=== PATIENT | female | born 1965 | race Caucasian/White ===

== ENCOUNTER 2018-02-04 20:58 | Emergency (ER) | payer MEDICAID ==
[2018-02-04] MEDS ORDERED: NS 1,000 ML IV ONE (21:02)
[2018-02-04] MEDS ORDERED: D50W 25 GM/50 ML SYR IVP ONE (21:08)
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
[2018-02-04 21:23] LABS: PLATELET COUNT 236 10^3/uL (150-400)
[2018-02-04 22:34] VITALS: BP 102/68
== END 2018-02-04 22:33 | disposition home or self-care (01) ==
DX: G40.909 Epilepsy, unspecified, not intractable, without status epilepticus (principal); Z86.73 Personal history of transient ischemic attack (TIA), and cerebral infarction without residual deficits

== ENCOUNTER 2018-02-16 02:48 | Emergency (ER) | payer MEDICAID ==
[2018-02-16] MEDS ORDERED: NS 1,000 ML IV ONE (02:53)
--- NOTE | 2018-02-16 02:57 | EDPHY ---
H & P Time Seen by Provider: 02/16/18 02:55 HPI/ROS: HPI CHIEF COMPLAINT: Seizure HISTORY OF PRESENT ILLNESS: Patient very pleasant 52-year-old female she is homeless, she has a history of seizure disorders and takes Topamax, she also had a remote history of a stroke with left-sided residual deficit of which she uses a cane to help ambulate. She presents emergency room by EMS as she had a witnessed seizure under [place] he bystander called 911. It sounds like it was less than a minute to 2 min seizure activity. When EMS arrived they found her to have a postictal state. No bowel bladder incontinence. She did not bite her tongue. She arrived to the emergency room completely lucid, alert and oriented with no complaints. She is able to answer my questions. She knows where she is a knows the date. Past Medical History: Seizure history, history CVA left-sided residual deficit Past Surgical History: No recent surgery Social History: Homeless, denies illicit drugs alcohol or tobacco. Family History: Noncontributory ROS REVIEW OF SYSTEMS: A comprehensive 10 point review of systems is otherwise negative aside from elements mentioned in the history of present illness. Exam Constitutional appears well nontoxic no acute distress, triage nursing summary reviewed, vital signs reviewed, awake/alert. Eyes normal conjunctivae and sclera, EOMI, PERRLA. HENT normal inspection, atraumatic, moist mucus membranes, no epistaxis, neck supple/ no meningismus, no raccoon eyes. Respiratory clear to auscultation bilaterally, normal breath sounds, no respiratory distress, no wheezing. Cardiovascular rate normal, regular rhythm, no murmur, no edema, distal pulses normal. Gastrointestinal soft, non-tender, no rebound, no guarding, normal bowel sounds, no distension, no pulsatile mass. Genitourinary no CVA tenderness. Musculoskeletal no midline vertebral tenderness, full range of motion, no calf swelling, no tenderness of extremities, no meningismus, good pulses, neurovascularly intact. Skin pink, warm, & dry, no rash, skin atraumatic. Neurologic awake, alert and oriented x 3, AAOx3, moves all 4 extremities equally, motor intact, sensory intact, CN II-XII intact, normal cerebellar, normal vision, normal speech. Subtle left-sided weakness compared to the right- sided baseline per patient. Uses a cane. Psychiatric normal mood/affect. Heme/Lymph/Immune no lymphadenopathy. Differential Diagnosis: Includes but is not limited to in a particular order seizure disorder, epilepsy, breakthrough seizure, intracranial bleed Medical Decision Making: Plan for this patient so have an IV established, will check basic blood work gentle IV hydration, will give her a dose of home seizure medication and observed. She has a nonfocal neurological exam. She has baseline left-sided residual weakness. Uses a cane. Re-evaluation: 0435: Patient resting comfortably no acute distress. She has received IV fluids and Topamax. She has had no further seizure activity here in the emergency room her vital signs are stable. Electrolytes are appropriate. Her neurological exam is at her baseline she has no focal complaints. She is agreeable on discharge. I do recommend she follows up with primary care doctor/ neurologist. Continue to take her Topamax as prescribed. And return emergency room there is any worsening symptoms questions or concerns. Source: Patient, EMS Constitutional: Initial Vital Signs Temperature (C) 36.9 C 02/16/18 02:54 Heart Rate 64 02/16/18 02:54 Respiratory Rate 20 02/16/18 02:54 Blood Pressure 114/43 L 02/16/18 02:54 O2 Sat (%) 98 02/16/18 02:54 O2 Delivery Mode Room Air Allergies/Adverse Reactions: aspirin Allergy (Verified 02/16/18 02:53) codeine Allergy (Verified 02/16/18 02:53) dextrose Allergy (Verified 02/16/18 02:53) iodine Allergy (Verified 02/16/18 02:53) Home Medications: Medication Instructions Recorded Cyclobenzaprine 02/04/18 Mapap 02/04/18 Topiramate 02/04/18 Medical Decision Making - Data Points Laboratory Results: Laboratory Results 02/16/18 02:45 02/16/18 02:45 02/16/18 02/16/18 02:45 02:45 WBC 6.16 10^3/uL 10^3/uL (3.80-9.50) RBC 5.18 10^6/uL 10^6/uL (4.18-5.33) Hgb 15.0 g/dL g/dL (12.6-16.3) Hct 44.0 % % (38.0-47.0) MCV 84.9 fL fL (81.5-99.8) MCH 29.0 pg pg (27.9-34.1) MCHC 34.1 g/dL g/dL (32.4-36.7) RDW 13.0 % % (11.5-15.2) Plt Count 252 10^3/uL 10^3/uL (150-400) MPV 10.1 fL fL (8.7-11.7) Neut % (Auto) 54.5 % % (39.3-74.2) Lymph % (Auto) 32.6 % % (15.0-45.0) [place] % (Auto) 8.6 % % (4.5-13.0) Eos % (Auto) 3.4 % % (0.6-7.6) Baso % (Auto) 0.6 % % (0.3-1.7) Nucleat RBC Rel Count 0.0 % % (0.0-0.2) Absolute Neuts (auto) 3.35 10^3/uL 10^3/uL (1.70-6.50) Absolute Lymphs (auto) 2.01 10^3/uL 10^3/uL (1.00-3.00) Absolute Monos (auto) 0.53 10^3/uL 10^3/uL (0.30-0.80) Absolute Eos (auto) 0.21 10^3/uL 10^3/uL (0.03-0.40) Absolute Basos (auto) 0.04 10^3/uL 10^3/uL (0.02-0.10) Absolute Nucleated RBC 0.00 10^3/uL 10^3/uL (0-0.01) Immature Gran % 0.3 % % (0.0-1.1) Immature Gran # 0.02 10^3/uL 10^3/uL (0.00-0.10) Sodium 144 mEq/L mEq/L (135-145) Potassium 4.3 mEq/L mEq/L (3.3-5.0) Chloride 104 mEq/L mEq/L (97-110) Carbon Dioxide 25 mEq/l mEq/l (22-31) Anion Gap 15 mEq/L mEq/L (8-16) BUN 18 mg/dL mg/dL (7-23) Creatinine 1.0 mg/dL mg/dL (0.6-1.0) Estimated GFR 59 Glucose 72 mg/dL mg/dL (70-100) Calcium 9.7 mg/dL mg/dL (8.5-10.4) Medications Given: Discontinued Medications Sodium Chloride (Ns) 1,000 mls @ 0 mls/hr IV EDNOW ONE; Wide Open PRN Reason: Protocol Stop: 02/16/18 02:54 Last Admin: 02/16/18 03:00 Dose: 1,000 mls Topiramate (Topamax) 100 mg PO EDNOW ONE Stop: 02/16/18 03:16 Last Admin: 02/16/18 03:26 Dose: 100 mg Departure - Departure Disposition: Home, Routine, Self-Care Clinical Impression: Seizure Condition: Good Instructions: Epilepsy (ED) Additional Instructions: 1. Return emergency room if develops any worsening symptoms includes further seizure activity 2. Please follow up with her primary care doctor or neurologist 3. Take her seizure medication as prescribed. Referrals: Patient,NotPresent [Unknown] - As per Instructions
[2018-02-16 03:02] LABS: PLATELET COUNT 252 10^3/uL (150-400)
[2018-02-16] MEDS ORDERED: TOPIRAMATE 100 MG TAB PO ONE (03:15)
[2018-02-16] MEDS ORDERED: ACETAMINOPHEN 500 MG TAB PO ONE (04:48)
[2018-02-16] MEDS ORDERED: ACETAMINOPHEN 325 MG TAB ONE (04:49)
[2018-02-16 05:06] VITALS: BP 135/85
== END 2018-02-16 05:06 | disposition home or self-care (01) ==
LOC: EDUNIT#
DX: G40.909 Epilepsy, unspecified, not intractable, without status epilepticus (principal); E86.9 Volume depletion, unspecified; Z86.73 Personal history of transient ischemic attack (TIA), and cerebral infarction without residual deficits

== ENCOUNTER 2018-03-01 18:26 | Emergency (ER) | payer MEDICAID ==
--- NOTE | 2018-03-01 18:49 | CPEKG ---
Heart Rate: 87 RR Interval: 690 P-R Interval: 156 QRSD Interval: 72 QT Interval: 364 QTC Interval: 438 P [place]: 65 QRS [place]: 61 T Wave [place]: 51 EKG Severity - BORDERLINE ECG - EKG Impression: SINUS RHYTHM EKG Impression: PROBABLE LEFT ATRIAL ABNORMALITY Electronically Signed By: Calvin Lares 04-Mar-2018 11:38:33
[2018-03-01] MEDS ORDERED: NS 1,000 ML IV ONE (19:07)
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
[2018-03-01 19:11] LABS: PLATELET COUNT 244 10^3/uL (150-400)
[2018-03-01 21:24] VITALS: BP 120/83
== END 2018-03-01 21:26 | disposition home or self-care (01) ==
LOC: EDUNIT#
DX: R42 Dizziness and giddiness (principal); E86.9 Volume depletion, unspecified; Z86.73 Personal history of transient ischemic attack (TIA), and cerebral infarction without residual deficits

== ENCOUNTER 2018-04-01 18:29 | Emergency (ER) | payer MEDICAID ==
[2018-04-01] MEDS ORDERED: NS 500 ML IV ONE (18:56)
[2018-04-01 19:05] LABS: PLATELET COUNT 241 10^3/uL (150-400)
--- NOTE | 2018-04-01 19:22 | CPEKG ---
Heart Rate: 70 RR Interval: 857 P-R Interval: 152 QRSD Interval: 70 QT Interval: 400 QTC Interval: 432 P [place]: 62 QRS [place]: 54 T Wave [place]: 51 EKG Severity - NORMAL ECG - EKG Impression: SINUS RHYTHM Electronically Signed By: Clarissa Carpenter 01-Apr-2018 22:03:38
--- NOTE | 2018-04-01 20:23 | EDPHY ---
H & P Time Seen by Provider: 04/01/18 18:55 HPI/ROS: HPI Hit head. Possible seizure. 52-year-old female by ambulance. She is very familiar to our emergency department. I have seen her recently. She has a history of a seizure disorder. She reports that she was leaning down to pick and shovel man a bottle of water stood up and hit the back of her head on a piece of metal. She reports that she thinks she then had a seizure. EMS was called by bystanders. Currently she does not have any complaints. She denies headache. She denies neck pain although she is in a cervical spine collar placed by EMS. No chest pain. No palpitations. No shortness of breath. ROS: Constitutional: No fever, no chills. No weakness. Eyes: No discharge. No changes in vision. ENT: No sore throat. No nasal congestion or rhinorrhea. Respiratory: No cough. No shortness of breath. Cardiac: No chest pain, no palpitations. Gastrointestinal: No abdominal pain, no vomiting, no diarrhea. Genitourinary: No hematuria. No dysuria or increased frequency with urination. Musculoskeletal: No back pain. No neck pain. No myalgias or arthralgias. Skin: No rashes. Neurological: No headache. No focal weakness or altered sensation. 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 Social history: Homeless. Denies alcohol. Does not smoke. Currently here by herself. Physical Exam: General Appearance: Alert, no distress. This patient is responding to questions appropriately. I feel she is at her baseline mental status. This patient appears well-hydrated and well-nourished. Head: Normocephalic atraumatic. No evidence of any head trauma. Face: Facial bones are stable on palpation. Eyes: Pupils equal and round and reactive to light at 3-2 mm bilaterally., no pallor or injection. No lid erythema or edema. ENT, Mouth: Mucous membranes moist. Dentition is intact. No malocclusion of the jaw. No tongue lacerations or abrasions. Pharynx is clear. The bilateral nasal canals are clear. No septal hematoma. Respiratory: There are no retractions, lungs are clear to auscultation with good air movement bilaterally. Chest wall is stable to AP and lateral palpation. Cardiovascular: Regular rate and rhythm. No murmur. Gastrointestinal: Abdomen is soft and nontender, no masses, bowel sounds normal. Neurological: Motor sensory function is intact except for residual baseline left-sided weakness. Cranial nerves are normal. Cerebellar function intact. Skin: Warm and dry, no rashes. No lacerations, abrasions or contusions. Musculoskeletal: Neck is supple and nontender. The trachea is midline. No midline cervical, thoracic, lumbar or sacral tenderness on palpation. No flank tenderness on palpation. Extremities are symmetrical, full range of motion. All joints in the bilateral upper and bilateral lower extremities range without pain or impingement. No tenderness on palpation of the long bones in the bilateral upper and bilateral lower extremities. Psychiatric: No agitation. No depression. Database: EKG: EKG time is 7:21 p.m.; EKG shows a narrow complex normal sinus rhythm with a ventricular rate of 70. The [place], QRS, QT intervals are within normal limits. There are no ST-T wave changes indicative of ischemic or injury pattern. No evidence of right heart strain. No evidence of WPW, Brugada syndrome, hypertrophic cardiomyopathy. Interpreted by me. Imaging: Procedures: Emergency department course: Triage vital signs reviewed and are normal. No significant findings on physical exam. Her cervical collar was clinically cleared. I do not suspect any significant head injury or other traumatic injury. I feel a cardiac etiology of syncope is unlikely. Her blood work is unremarkable. No tongue lacerations or abrasions. Seizure is unlikely. I do not feel at this time that she requires further emergency department workup. She feels comfortable being discharged. Follow-up and return to emergency department precautions were reviewed with her. All of her questions were answered. She was discharged from the emergency department in good condition. Differential Diagnosis: The differential diagnosis on this patient includes but is not limited to minor head injury, seizure. Cardiac etiology of syncope, traumatic brain injury, other significant traumatic injury unlikely. This represents a partial list of diagnoses considered. These considerations are based on history, physical exam , past history, reassessment and diagnostic testing. Smoking Status: Current some day smoker Constitutional: Initial Vital Signs Temperature (C) 37.2 C 04/01/18 18:31 Heart Rate 73 04/01/18 18:31 Respiratory Rate 18 04/01/18 18:31 Blood Pressure 110/64 04/01/18 18:31 O2 Sat (%) 98 04/01/18 18:31 O2 Delivery Mode Room Air Allergies/Adverse Reactions: aspirin Allergy (Verified 04/01/18 18:34) codeine Allergy (Verified 04/01/18 18:34) dextrose Allergy (Verified 04/01/18 18:34) iodine Allergy (Verified 04/01/18 18:34) Home Medications: Medication Instructions Recorded Topiramate 02/04/18 Medical Decision Making - Data Points Laboratory Results: Laboratory Results 04/01/18 18:29 04/01/18 18:29 04/01/18 04/01/18 18:29 18:29 WBC 7.31 10^3/uL 10^3/uL (3.80-9.50) RBC 4.53 10^6/uL 10^6/uL (4.18-5.33) Hgb 13.3 g/dL g/dL (12.6-16.3) Hct 38.3 % % (38.0-47.0) MCV 84.5 fL fL (81.5-99.8) MCH 29.4 pg pg (27.9-34.1) MCHC 34.7 g/dL g/dL (32.4-36.7) RDW 13.2 % % (11.5-15.2) Plt Count 241 10^3/uL 10^3/uL (150-400) MPV 10.9 fL fL (8.7-11.7) Neut % (Auto) 55.2 % % (39.3-74.2) Lymph % (Auto) 33.4 % % (15.0-45.0) Grand % (Auto) 7.4 % % (4.5-13.0) Eos % (Auto) 3.0 % % (0.6-7.6) Baso % (Auto) 0.7 % % (0.3-1.7) Nucleat RBC Rel Count 0.0 % % (0.0-0.2) Absolute Neuts (auto) 4.04 10^3/uL 10^3/uL (1.70-6.50) Absolute Lymphs (auto) 2.44 10^3/uL 10^3/uL (1.00-3.00) Absolute Monos (auto) 0.54 10^3/uL 10^3/uL (0.30-0.80) Absolute Eos (auto) 0.22 10^3/uL 10^3/uL (0.03-0.40) Absolute Basos (auto) 0.05 10^3/uL 10^3/uL (0.02-0.10) Absolute Nucleated RBC 0.00 10^3/uL 10^3/uL (0-0.01) Immature Gran % 0.3 % % (0.0-1.1) Immature Gran # 0.02 10^3/uL 10^3/uL (0.00-0.10) Sodium 140 mEq/L mEq/L (135-145) Potassium 4.0 mEq/L mEq/L (3.3-5.0) Chloride 108 mEq/L mEq/L (97-110) Carbon Dioxide 21 mEq/l L mEq/l (22-31) Anion Gap 11 mEq/L mEq/L (8-16) BUN 16 mg/dL mg/dL (7-23) Creatinine 0.9 mg/dL mg/dL (0.6-1.0) Estimated GFR > 60 Glucose 70 mg/dL mg/dL (70-100) Calcium 9.2 mg/dL mg/dL (8.5-10.4) Medications Given: Discontinued Medications Sodium Chloride (Ns) 500 mls @ 1,000 mls/hr IV EDNOW ONE PRN Reason: Protocol Stop: 04/01/18 19:25 Last Admin: 04/01/18 19:20 Dose: 500 mls Departure - Departure Disposition: Home, Routine, Self-Care Clinical Impression: Head injury, Possible seizure, History of seizures Condition: Good Instructions: Head Injury (ED) Additional Instructions: Read and follow provided instructions. Follow-up with your primary care physician in 1-2 days for re-evaluation. Take your seizure medication as prescribed. Return to the emergency department for worsening symptoms, worsening headache, chest pain, palpitations or other serious concerns. Referrals: NONE *PRIMARY CARE P,. [Primary Care Provider] - As per Instructions
[2018-04-01 20:47] VITALS: BP 111/61
== END 2018-04-01 20:45 | disposition home or self-care (01) ==
LOC: EDUNIT#
DX: S09.90XA Unspecified injury of head, initial encounter (principal); E86.9 Volume depletion, unspecified; F17.200 Nicotine dependence, unspecified, uncomplicated; Z86.69 Personal history of other diseases of the nervous system and sense organs; W22.8XXA Striking against or struck by other objects, initial encounter; Y99.8 Other external cause status; Y93.89 Activity, other specified

== ENCOUNTER 2019-03-09 13:31 | Emergency (ER) | payer OTHER, MEDICAID | END 2019-03-09 14:44 | disposition home or self-care (01) ==

== ENCOUNTER 2019-03-15 16:10 | Emergency (ER) | payer OTHER, MEDICAID | END 2019-03-15 18:30 | disposition short-term general hospital (02) ==